=== PATIENT | female | born 1945 | race Caucasian/White ===

== ENCOUNTER 2020-02-27 05:58 | Inpatient (IN) ==
[2020-02-27] MEDS ORDERED: Ringers Solution, Lactated 1,000 ML IVC SCH (06:30)
[2020-02-27] MEDS ORDERED: Ondansetron 4 MG/2 ML VIAL ONE (07:05)
[2020-02-27] MEDS ORDERED: *HR* Succinylcholine 200 MG/10 ML VIAL IVP ONE (07:05)
[2020-02-27] MEDS ORDERED: *HR* Rocuronium Bromide 50 MG/5 ML VIAL ONE ×2 (07:05→08:55)
[2020-02-27] MEDS ORDERED: Lidocaine -MPF 2% 2 ML VIAL ONE (07:05)
[2020-02-27] MEDS ORDERED: *HR* FentaNYL (PF) 100 MCG/2 ML VIAL ONE ×2 (07:05→08:41)
[2020-02-27] MEDS ORDERED: Lidocaine -MPF 4% 5 ML AMPUL ONE (07:05)
[2020-02-27] MEDS ORDERED: Dexamethasone 4 MG/ML VIAL ONE (07:05)
[2020-02-27] MEDS ORDERED: *HR* Propofol 200 MG/20 ML VIAL IVP ONE (07:06)
[2020-02-27] MEDS ORDERED: Famotidine 20 MG/2 ML VIAL IVP ONE (07:16)
[2020-02-27] MEDS ORDERED: *HR* OxyCODONE Immed Rel 5 MG TABLET PO PRN (07:16)
[2020-02-27] MEDS ORDERED: *HR* Labetalol 20 MG/4 ML SYRINGE IVP PRN (07:16)
[2020-02-27] MEDS ORDERED: Acetaminophen IV 1,000 MG/100 ML INFUS..BTL IVPB ONE (07:16)
[2020-02-27] MEDS ORDERED: *HR* HYDROmorphone 2 MG TABLET PO PRN (07:16)
[2020-02-27] MEDS ORDERED: *HR* HYDROmorphone (PF) 1 MG/ML SYRINGE IVP PRN (07:16)
[2020-02-27] MEDS ORDERED: Pregabalin 75 MG CAPSULE PO ONE (07:16)
[2020-02-27] MEDS ORDERED: *HR* Promethazine 25 MG/ML VIAL IVP PRN (07:16)
[2020-02-27] MEDS ORDERED: Bupivacaine-MPF 0.25% 10 ML VIAL ONE (07:25)
[2020-02-27] MEDS ORDERED: Mannitol 25% vial 12.5 GM/50 ML VIAL IVP ONE (07:30)
[2020-02-27] MEDS: CeFAZolin Syr 2,000MG/20 ML 2,000 MG/20 ML SYRINGE IVPB ONE ×2 (07:45→11:53)
[2020-02-27] MEDS ORDERED: *HR* PHENYLEPHRINE 1,000 MCG/10 ML SYRINGE IVP ONE (08:11)
[2020-02-27] MEDS ORDERED: *HR* HYDROMORPHONE 2 MG/ML VIAL ONE (11:40)
[2020-02-27] MEDS ORDERED: *HR* OxyCODONE/APAP 5/325 TABLET PO PRN (13:33)
[2020-02-27] MEDS ORDERED: Acetaminophen 325 MG TABLET PO PRN (13:33)
[2020-02-27] MEDS ORDERED: Ondansetron 4 MG/2 ML VIAL IVP PRN (13:33)
[2020-02-27] MEDS ORDERED: Naloxone 0.4 MG/ML INJ IVP PRN (13:33)
[2020-02-27] MEDS ORDERED: Erythromycin OPTH Oint BOTH EYES ONE (14:09)
[2020-02-27] MEDS ORDERED: *HR* OxyCODONE Immed Rel 5 MG TABLET PO ONE (14:45)
[2020-02-27] MEDS: 0.9 % Sodium Chloride 1,000 ML IVC SCH (15:09)
[2020-02-27] MEDS: carvediloL 25 MG TABLET PO SCH (18:11)
[2020-02-27] MEDS: *HR* Heparin 5,000 UNIT/ML VIAL SQ SCH (18:11)
[2020-02-27] MEDS: CeFAZolin 2 GM/120 ML BAG IVPB SCH (20:01)
[2020-02-28] MEDS: 0.9 % Sodium Chloride 1,000 ML IVC SCH ×2 (00:12→19:24)
[2020-02-28] MEDS: *HR* Heparin 5,000 UNIT/ML VIAL SQ SCH ×2 (05:02→17:18)
[2020-02-28] MEDS: CeFAZolin 2 GM/120 ML BAG IVPB SCH (05:02)
[2020-02-28] MEDS: Levothyroxine 25 MCG TABLET PO SCH (05:02)
[2020-02-28] MEDS: Erythromycin OPTH Oint LEFT EYE PRN ×4 (05:15→21:58)
[2020-02-28 06:13] LABS: Basophils % 0.3 %; Hematocrit 32.3 % (35.3-44.9); Hemoglobin 9.5 g/dL (11.5-15.4); Immature Granulocytes % 0.3 % (0-4); Lymphocytes # 0.6 K/mcL (0.6-4.6); Lymphocytes % 5.4 %; Mean Corpuscular HGB Conc 29.4 g/dL (31.6-35.5); Mean Corpuscular Hemoglobin 28.4 pg (28.0-33.3); Mean Corpuscular Volume 96.4 fL (83.0-100.0); Mean Platelet Volume 10.4 fL (9.4-12.4); Monocytes # 0.6 K/mcL (0.0-1.3); Monocytes % 5.5 %; Neutrophils # 10.2 K/mcL (1.6-8.9); Platelet Count 194 K/mcL (140-400); Red Blood Count 3.35 M/mcL (3.82-4.97); Red Cell Distribution Width 14.9 % (11.5-14.5); Segmented Neutrophils % 88.5 %; White Blood Count 11.6 K/mcL (4.3-11.1)
[2020-02-28 06:33] LABS: Calcium 8.6 mg/dL (8.6-10.3); Potassium 4.9 mEq/L (3.5-5.1)
[2020-02-28] MEDS: carvediloL 25 MG TABLET PO SCH ×2 (07:46→17:18)
[2020-02-29] MEDS: *HR* Heparin 5,000 UNIT/ML VIAL SQ SCH (05:46)
[2020-02-29] MEDS: Levothyroxine 25 MCG TABLET PO SCH (05:47)
[2020-02-29 07:40] LABS: Hematocrit 31.6 % (35.3-44.9); Hemoglobin 9.3 g/dL (11.5-15.4); Mean Corpuscular HGB Conc 29.4 g/dL (31.6-35.5); Mean Corpuscular Hemoglobin 28.4 pg (28.0-33.3); Mean Corpuscular Volume 96.3 fL (83.0-100.0); Mean Platelet Volume 11.1 fL (9.4-12.4); Platelet Count 196 K/mcL (140-400); Red Blood Count 3.28 M/mcL (3.82-4.97); Red Cell Distribution Width 15.3 % (11.5-14.5); White Blood Count 12.3 K/mcL (4.3-11.1)
[2020-02-29 08:01] LABS: Calcium 9.1 mg/dL (8.6-10.3); Potassium 4.3 mEq/L (3.5-5.1)
[2020-02-29] MEDS: carvediloL 25 MG TABLET PO SCH (08:21)
[2020-02-29 10:48] VITALS: BP 110/55
== END 2020-02-29 13:17 | disposition home or self-care (01) | DRG 657 ==
LOC: SAMDAY 05:58 → 3ANU 13:07
PROVIDERS: ADMIT Urology; ATTEND Urology